=== PATIENT | male | born 1955 | race Caucasian/White ===

== ENCOUNTER 2019-04-05 15:00 | Inpatient (IN) | payer MEDICARE ==
[2019-04-05 15:34] VITALS: BMI 22.4
--- NOTE | 2019-04-05 17:41 | History and Physical Report ---
History of Present Illnes - History of Present Illness Reason for Visit: gait disturbance, wound vac therapy History of Present Illness: 64yo Male who had been diagnosed in 2007 with advanced pancreatic neuroendocrine tumor. On March 14 patient was admitted to the [facility] in clinic for incarcerated ventral hernia patient underwent an exploratory laparotomy with small bowel resection and repair.patient postoperative course has been complicated by urinary retention. Patient had a Rhodes catheter removed several days ago and seemed to be urinating adequately at this time. Patient is also had some continuing leakage of acidic fluid from the incision site. Patient has a wound at the incision site that is hearing by secondary intention. Patient currently has a wound vac to help with wound healing. Patient was transferred to this institution for further physical and occupational therapy because the generalized weakness secondary to his prolonged illness and recovery process. Patient is also continuing to use the wound vac. It is the patient intention to return back home. Patient was diagnosed in 2007 with the pancreatic neuroendocrine tumor. At that time he underwent resection of his left colon, spleen, and pancreas. He has subsequently developed metastatic disease to the liver and underwent a cholecystectomy, partial liver resection, and debulking in 2014. Has required numerous stands for biliary obstruction. Patient also had esophageal varices which is required bending on several different occasions. Patient states that he had been receiving some form of chemotherapy orally that he was started on two weeks prior to his hospitalization. However this is since been discontinued. Patient does have chronic ascites and has had to have frequent abdominal paracentesis. Patient is diabetic related to his pancreatic resection. - Past Medical History Cardiac: Hyperlipidemia Gastrointestinal: Inflam bowel disease, Other (ascites, esophageal varices, ) Heme/Onc: Cancer (maliganant carcinoid syndrome, Primary pancreatic neuroendocrine tumor with metstatic disease) Endocrine: Diabetes (type 2 due to pancreatic resection), Hypothyroidism, Other (hyponatremia) - Past Surgical History Past Surgical History: Cholecystectomy, Other (pacreatic resection, Left colon resection, spleenectomy, partial liver resection, numerous biliary stents for bilary obstruction, banding of esophageal varices, ) - Past Social History Smoke: No Alcohol: None Drugs: None Lives: With Family Domestic Violence: Negative - Health Maintenance Health Maintenance: Pneumococcal Vaccine, Other (meningococcal) Pneumonia Vaccine: Yes Resuscitation Status: full code Review of Systems - Review of Systems Constitutional: negative: Fever, Chills Eyes: negative: pain, vision change, eyelid inflammation ENT: negative: Ear Pain, Ear Discharge, Nose Pain, Nose Discharge, Nose Congestion, Mouth Swelling, Throat Pain, Throat Swelling Respiratory: negative: Cough, Shortness of Breath, Hemoptysis, SOB with Excertion, Pleuritic Pain, Wheezing Cardiovascular: Edema (trace). negative: Chest Pain, Palpitations, Orthopnea, Paroxysmal Noc. Dyspnea, Light Headedness Gastrointestinal: Nausea, Abdominal Pain (post surgical). negative: Vomiting, Diarrhea, Constipation, Melena, Hematochezia Genitourinary: Other (patient had some problems with urination that required rhodes post op but is doing OK now). negative: Dysuria, Frequency, Incontinence, Hematuria Musculoskeletal: negative: Neck Pain, Shoulder Pain, Arm Pain, Back Pain, Hand Pain Skin: negative: Rash, Lesions, Jaundice Neurological: Weakness (generalized). negative: Incoordination, Change in Speech, Confusion, Seizures - Medications/Allergies Allergies/Adverse Reactions: Allergies Allergy/AdvReac Type Severity Reaction Status Date / Time Penicillins Allergy Verified 04/05/19 15:57 Home Medications: Home Medications Acetaminophen [Tylenol] 650 mg PO Q4H PRN 04/05/19 Ascorbic Acid [Vitamin C with Maureen Hips] 500 mg PO TID 04/05/19 Carvedilol [Coreg] 3.125 mg PO BID 04/05/19 Cholecalciferol [Vitamin D-3] 400 intlu PO DAILY 04/05/19 Folic Acid [Folvite] 1 mg PO DAILY 04/05/19 Furosemide [Lasix] 40 mg PO DAILY 04/05/19 Insulin Glargine,Hum.rec.anlog [Lantus] 10 units SQ BID 04/05/19 Insulin Lispro [Humalog Kwikpen U-200] See Protocol 04/05/19 Lanreotide Acetate [Somatuline Depot] 120 mg SQ MONTH 04/05/19 Levothyroxine Sodium [Synthroid] 50 mcg PO DAILY 04/05/19 Ondansetron HCl Rapdis [Zofran ODT] 4 mg PO TID PRN 04/05/19 Oxycodone HCl [Roxicodone] 5 mg PO Q6H PRN 04/05/19 Current Inpatient Medications: Current Inpatient Medications Enoxaparin Sodium (Lovenox) 30 mg SQ DAILY FRANKLIN Stop: 04/20/19 08:59 Exam - Exam Vital Signs: Vital Signs (72 hours) 04/05/19 04/05/19 15:29 15:31 Temperature 97.6 F 97.6 F Pulse Rate [ 84 84 Left Pulse ox] Respiratory 18 18 Rate Blood Pressure 131/78 131/78 [Left Arm] O2 Sat by Pulse 99 99 Oximetry General: Alert, Oriented to Person, Oriented to Place, Oriented to Time, Cooperative, No acute distress HEENT: Atraumatic, PERRLA, EOMI, Mouth Mucous membr. moist/[place], Nose Mucous membr. moist/[place], Dentition Normal, Hearing Grossly Normal Neck: Normal Range of Motion Carotids: slight right bruit Lungs: Clear to auscultation, Normal air movement, Speaks full Sentences Cardiovascular: Regular rate, Normal S1, Normal S2, No murmurs Abdomen: Normal bowel sounds, Soft, No hepatospenomegaly, No masses, Other (wound vac on midline wound superior to umbilicus about 4 cm in diameter, drainage site in RUQ with duraderm ), Distended (mild) Male Genitourinary: Scrotal Edema Integumentary: Normal, [place], Warm, Dry Extremities: No clubbing, No cyanosis, Normal pulses, No tenderness/swelling, Other (mild edema to feet) Neurological: Normal gait, Normal speech, Strength Equal Bilat, Normal tone, Sensation intact, Cranial nerves 3-12 NL, Reflexes 2+ Psych/Mental Status: Mental status NL, Mood NL, Appropriate Affect, Intact Judgment Assessment/Plan - Assessment/Plan (1) S/P repair of ventral hernia Status: Acute Current Visit: Yes Plan: Patient will be continued on the wound VAC. Will continue to monitor patient incision site for healing. (2) Generalized weakness Status: Acute Current Visit: Yes Assessment: Patient will be started on physical and occupational therapy. Will try to optimize patient nutritional status. Patient will be given supplemental nutrition at this time. (3) Diabetes type 2, controlled Status: Chronic Current Visit: Yes Qualifiers: Diabetes mellitus half-way insulin use: with long wall shear operator use Diabetes mellitus complication status: without complication Qualified Code(s): E11.9 - Type 2 diabetes mellitus without complications; Z79.4 - care home (current) use of insulin Plan: Patient will be continued on his home insulin with sliding scale and long-acting insulin. (4) Esophageal varices Status: Chronic Current Visit: Yes Qualifiers: Esophageal varices type: secondary Esophageal varices bleeding: without bleeding Qualified Code(s): I85.10 - Secondary esophageal varices without bleeding Plan: Will continue to monitor. Patient will be started on the proton pump inhibitor. (5) Hypothyroidism Status: Chronic Current Visit: Yes Qualifiers: Hypothyroidism type: unspecified Qualified Code(s): E03.9 - Hypothyroidism, unspecified Plan: Patient will be continued on home thyroid medication. (6) Primary pancreatic neuroendocrine tumor Status: Acute Current Visit: Yes Plan: Patient will have follow up with Dr. Dawn. (7) Metastases to the liver Status: Acute Current Visit: Yes Assessment: Monitored liver function tests. VTE Assessment - RISK FACTOR SCORE VTE RISK FACTOR SCORES: AGE OVER 60 YEARS, ANTICIPATED BED CONFINEMENT OR IMMOBILIZATION > 24 HOURS, MALIGNANCY AND/OR CHEMOTHERAPY - RISK VTE HIGH RISK: SCORE OF 3-4 (RISK PROXIMAL DVT 4-8%) PROPHYLAXIS NEEDED
[2019-04-05] MEDS: ONDANSETRON HCL 4 MG TAB.RAPDIS PO PRN (18:39)
[2019-04-05] MEDS ORDERED: INSULIN GLARGINE,HUM.REC.ANLOG 100 UNIT/ML PEN.INJCTR SQ ONE (20:01)
[2019-04-05] MEDS: CARVEDILOL 6.25 MG TABLET PO SCH (20:43)
[2019-04-05] MEDS: INSULIN ASPART 100 UNIT/ML INSULN.PEN SQ SCH (20:49)
[2019-04-05] MEDS ORDERED: INSULIN GLARGINE HUM REC ANLOG 10 UNIT SQ SCH (21:00)
[2019-04-06] MEDS: PANTOPRAZOLE SODIUM 40 MG TABLET.DR PO SCH (06:10)
[2019-04-06] MEDS: ONDANSETRON HCL 4 MG TAB.RAPDIS PO PRN (06:10)
[2019-04-06] MEDS ORDERED: ASCORBIC ACID (VITAMIN C) 500 MG TABLET PO ONE (08:31)
[2019-04-06] MEDS ORDERED: FUROSEMIDE 40 MG TABLET PO ONE (08:31)
[2019-04-06] MEDS ORDERED: CARVEDILOL 6.25 MG TABLET PO ONE (08:31)
[2019-04-06] MEDS: CARVEDILOL 6.25 MG TABLET PO SCH ×2 (08:41→20:01)
[2019-04-06] MEDS: FUROSEMIDE 40 MG TABLET PO SCH (08:43)
[2019-04-06] MEDS: ASCORBIC ACID (VITAMIN C) 500 MG TABLET PO SCH ×3 (08:43→17:10)
[2019-04-06] MEDS: INSULIN GLARGINE,HUM.REC.ANLOG 100 UNIT/ML PEN.INJCTR SQ SCH ×2 (08:46→20:05)
[2019-04-06] MEDS: INSULIN ASPART 100 UNIT/ML INSULN.PEN SQ SCH ×4 (08:49→20:04)
[2019-04-06] MEDS: FOLIC ACID 1 MG TABLET PO SCH (09:34)
[2019-04-06] MEDS: ENOXAPARIN SODIUM 30 MG/0.3 ML DISP.SYRIN SQ SCH (09:34)
[2019-04-06] MEDS: CHOLECALCIFEROL (VIT-D3) 1,000 UNIT TABLET PO SCH (09:35)
[2019-04-06] MEDS: LEVOTHYROXINE SODIUM 50 MCG TABLET PO SCH (12:22)
[2019-04-06] MEDS: TAMSULOSIN HCL 0.4 MG CAP.ER.24H PO SCH (17:10)
[2019-04-06] MEDS: ACETAMINOPHEN 325 MG TABLET PO PRN (17:17)
[2019-04-06] MEDS: traMADol HCL 50 MG TABLET PO PRN (20:02)
[2019-04-07] MEDS: ACETAMINOPHEN 325 MG TABLET PO PRN (04:01)
[2019-04-07] MEDS: LEVOTHYROXINE SODIUM 50 MCG TABLET PO SCH (06:00)
[2019-04-07] MEDS: PANTOPRAZOLE SODIUM 40 MG TABLET.DR PO SCH (06:00)
[2019-04-07] MEDS: INSULIN ASPART 100 UNIT/ML INSULN.PEN SQ SCH ×4 (07:21→20:07)
[2019-04-07] MEDS: INSULIN GLARGINE,HUM.REC.ANLOG 100 UNIT/ML PEN.INJCTR SQ SCH ×2 (08:06→20:08)
[2019-04-07] MEDS: CHOLECALCIFEROL (VIT-D3) 1,000 UNIT TABLET PO SCH (08:11)
[2019-04-07] MEDS: FOLIC ACID 1 MG TABLET PO SCH (08:11)
[2019-04-07] MEDS: ENOXAPARIN SODIUM 30 MG/0.3 ML DISP.SYRIN SQ SCH (08:12)
[2019-04-07] MEDS: FUROSEMIDE 40 MG TABLET PO SCH (08:12)
[2019-04-07] MEDS: ASCORBIC ACID (VITAMIN C) 500 MG TABLET PO SCH ×3 (08:12→18:13)
[2019-04-07] MEDS: CARVEDILOL 6.25 MG TABLET PO SCH ×2 (08:12→20:06)
[2019-04-07] MEDS: traMADol HCL 50 MG TABLET PO PRN ×3 (08:19→20:06)
[2019-04-07] MEDS: ONDANSETRON HCL 4 MG TAB.RAPDIS PO PRN ×2 (08:20→18:20)
[2019-04-07] MEDS ORDERED: CALCIUM CARB 500 MG TAB.CHEW PO PRN (14:02)
[2019-04-07] MEDS: TAMSULOSIN HCL 0.4 MG CAP.ER.24H PO SCH (18:13)
[2019-04-08] MEDS: PANTOPRAZOLE SODIUM 40 MG TABLET.DR PO SCH (05:46)
[2019-04-08] MEDS: LEVOTHYROXINE SODIUM 50 MCG TABLET PO SCH (05:46)
[2019-04-08] MEDS: ACETAMINOPHEN 325 MG TABLET PO PRN (05:46)
[2019-04-08] MEDS: INSULIN ASPART 100 UNIT/ML INSULN.PEN SQ SCH ×4 (07:30→23:32)
[2019-04-08] MEDS: ONDANSETRON HCL 4 MG TAB.RAPDIS PO PRN (08:17)
[2019-04-08] MEDS: CARVEDILOL 6.25 MG TABLET PO SCH ×2 (08:51→23:29)
[2019-04-08] MEDS: FUROSEMIDE 40 MG TABLET PO SCH (08:51)
[2019-04-08] MEDS: FOLIC ACID 1 MG TABLET PO SCH (08:51)
[2019-04-08] MEDS: ASCORBIC ACID (VITAMIN C) 500 MG TABLET PO SCH ×3 (08:52→17:56)
[2019-04-08] MEDS: CHOLECALCIFEROL (VIT-D3) 1,000 UNIT TABLET PO SCH (08:52)
[2019-04-08] MEDS: ENOXAPARIN SODIUM 30 MG/0.3 ML DISP.SYRIN SQ SCH (08:52)
[2019-04-08] MEDS: INSULIN GLARGINE,HUM.REC.ANLOG 100 UNIT/ML PEN.INJCTR SQ SCH ×2 (08:52→23:34)
[2019-04-08] MEDS: traMADol HCL 50 MG TABLET PO PRN ×2 (11:18→17:57)
[2019-04-08] MEDS: TAMSULOSIN HCL 0.4 MG CAP.ER.24H PO SCH (17:56)
[2019-04-09] MEDS: PANTOPRAZOLE SODIUM 40 MG TABLET.DR PO SCH (06:06)
[2019-04-09] MEDS: traMADol HCL 50 MG TABLET PO PRN ×3 (06:06→21:05)
[2019-04-09] MEDS: LEVOTHYROXINE SODIUM 50 MCG TABLET PO SCH (06:06)
[2019-04-09] MEDS: INSULIN ASPART 100 UNIT/ML INSULN.PEN SQ SCH ×4 (07:52→21:12)
[2019-04-09] MEDS: INSULIN GLARGINE,HUM.REC.ANLOG 100 UNIT/ML PEN.INJCTR SQ SCH ×2 (07:55→21:06)
[2019-04-09] MEDS: CHOLECALCIFEROL (VIT-D3) 1,000 UNIT TABLET PO SCH (08:13)
[2019-04-09] MEDS: ASCORBIC ACID (VITAMIN C) 500 MG TABLET PO SCH ×3 (08:14→17:46)
[2019-04-09] MEDS: FUROSEMIDE 40 MG TABLET PO SCH (08:14)
[2019-04-09] MEDS: CARVEDILOL 6.25 MG TABLET PO SCH ×2 (08:14→21:05)
[2019-04-09] MEDS: FOLIC ACID 1 MG TABLET PO SCH (08:15)
[2019-04-09] MEDS: ENOXAPARIN SODIUM 30 MG/0.3 ML DISP.SYRIN SQ SCH (08:15)
[2019-04-09] MEDS: ACETAMINOPHEN 325 MG TABLET PO PRN (08:19)
[2019-04-09] MEDS: TAMSULOSIN HCL 0.4 MG CAP.ER.24H PO SCH (17:46)
[2019-04-10] MEDS: PANTOPRAZOLE SODIUM 40 MG TABLET.DR PO SCH (06:38)
[2019-04-10] MEDS: traMADol HCL 50 MG TABLET PO PRN ×2 (06:38→21:57)
[2019-04-10] MEDS: LEVOTHYROXINE SODIUM 50 MCG TABLET PO SCH (06:38)
[2019-04-10] MEDS: INSULIN ASPART 100 UNIT/ML INSULN.PEN SQ SCH ×4 (07:41→21:59)
[2019-04-10] MEDS: INSULIN GLARGINE,HUM.REC.ANLOG 100 UNIT/ML PEN.INJCTR SQ SCH ×2 (07:47→22:01)
[2019-04-10] MEDS: ONDANSETRON HCL 4 MG TAB.RAPDIS PO PRN (07:49)
[2019-04-10 07:54] LABS: APPEARANCE,URINE CLEAR (CLEAR); COLOR,URINE YELLOW (YELLOW); OCCULT BLOOD,URINE TRACE-INTACT (NEGATIVE); PH URINE 5.5 (5.0 - 8.0); UROBILINOGEN URINE 0.2 Eu (0.2-1.0)
[2019-04-10] MEDS: FUROSEMIDE 40 MG TABLET PO SCH (09:56)
[2019-04-10] MEDS: ASCORBIC ACID (VITAMIN C) 500 MG TABLET PO SCH ×3 (09:56→17:35)
[2019-04-10] MEDS: CARVEDILOL 6.25 MG TABLET PO SCH ×2 (09:56→21:57)
[2019-04-10] MEDS: CHOLECALCIFEROL (VIT-D3) 1,000 UNIT TABLET PO SCH (09:57)
[2019-04-10] MEDS: ENOXAPARIN SODIUM 30 MG/0.3 ML DISP.SYRIN SQ SCH (09:57)
[2019-04-10] MEDS: FOLIC ACID 1 MG TABLET PO SCH (09:57)
[2019-04-10] MEDS: ACETAMINOPHEN 325 MG TABLET PO PRN (10:07)
[2019-04-10] MEDS: TAMSULOSIN HCL 0.4 MG CAP.ER.24H PO SCH (17:35)
[2019-04-11] MEDS: PANTOPRAZOLE SODIUM 40 MG TABLET.DR PO SCH (06:08)
[2019-04-11] MEDS: LEVOTHYROXINE SODIUM 50 MCG TABLET PO SCH (06:08)
[2019-04-11] MEDS: traMADol HCL 50 MG TABLET PO PRN ×2 (06:08→14:38)
[2019-04-11] MEDS: ONDANSETRON HCL 4 MG TAB.RAPDIS PO PRN (06:08)
[2019-04-11 07:12] LABS: eGFR (Non-African) > 60
[2019-04-11 07:33] LABS: BASOPHILS % 0.4 % (0.0-1.5); NEUTROPHILS # 4.6 # k/uL (1.4-7.7)
[2019-04-11] MEDS: INSULIN ASPART 100 UNIT/ML INSULN.PEN SQ SCH ×4 (07:43→21:06)
[2019-04-11] MEDS: INSULIN GLARGINE,HUM.REC.ANLOG 100 UNIT/ML PEN.INJCTR SQ SCH ×2 (07:44→21:07)
[2019-04-11] MEDS: FOLIC ACID 1 MG TABLET PO SCH (08:19)
[2019-04-11] MEDS: FUROSEMIDE 40 MG TABLET PO SCH (08:20)
[2019-04-11] MEDS: CARVEDILOL 6.25 MG TABLET PO SCH ×2 (08:20→21:05)
[2019-04-11] MEDS: CHOLECALCIFEROL (VIT-D3) 1,000 UNIT TABLET PO SCH (08:21)
[2019-04-11] MEDS: ASCORBIC ACID (VITAMIN C) 500 MG TABLET PO SCH ×3 (08:21→17:15)
[2019-04-11] MEDS: ENOXAPARIN SODIUM 30 MG/0.3 ML DISP.SYRIN SQ SCH (08:22)
[2019-04-11] MEDS: TAMSULOSIN HCL 0.4 MG CAP.ER.24H PO SCH (17:15)
[2019-04-12] MEDS: PANTOPRAZOLE SODIUM 40 MG TABLET.DR PO SCH (06:04)
[2019-04-12] MEDS: LEVOTHYROXINE SODIUM 50 MCG TABLET PO SCH (06:04)
[2019-04-12] MEDS: INSULIN ASPART 100 UNIT/ML INSULN.PEN SQ SCH ×4 (07:54→22:04)
[2019-04-12] MEDS: FOLIC ACID 1 MG TABLET PO SCH (08:22)
[2019-04-12] MEDS: ASCORBIC ACID (VITAMIN C) 500 MG TABLET PO SCH ×3 (08:22→18:10)
[2019-04-12] MEDS: CHOLECALCIFEROL (VIT-D3) 1,000 UNIT TABLET PO SCH (08:22)
[2019-04-12] MEDS: FUROSEMIDE 40 MG TABLET PO SCH (08:22)
[2019-04-12] MEDS: ENOXAPARIN SODIUM 30 MG/0.3 ML DISP.SYRIN SQ SCH (08:23)
[2019-04-12] MEDS: CARVEDILOL 6.25 MG TABLET PO SCH ×2 (08:23→21:45)
[2019-04-12] MEDS: INSULIN GLARGINE,HUM.REC.ANLOG 100 UNIT/ML PEN.INJCTR SQ SCH ×2 (09:59→21:47)
[2019-04-12] MEDS: traMADol HCL 50 MG TABLET PO PRN ×2 (11:33→21:44)
[2019-04-12] MEDS: TAMSULOSIN HCL 0.4 MG CAP.ER.24H PO SCH (18:10)
[2019-04-13] MEDS: ACETAMINOPHEN 325 MG TABLET PO PRN ×2 (02:52→20:42)
[2019-04-13] MEDS: ONDANSETRON HCL 4 MG TAB.RAPDIS PO PRN (02:52)
[2019-04-13] MEDS: LEVOTHYROXINE SODIUM 50 MCG TABLET PO SCH (06:34)
[2019-04-13] MEDS: traMADol HCL 50 MG TABLET PO PRN ×3 (06:34→17:35)
[2019-04-13] MEDS: PANTOPRAZOLE SODIUM 40 MG TABLET.DR PO SCH (06:34)
[2019-04-13] MEDS: INSULIN ASPART 100 UNIT/ML INSULN.PEN SQ SCH ×4 (08:51→20:39)
[2019-04-13] MEDS: INSULIN GLARGINE,HUM.REC.ANLOG 100 UNIT/ML PEN.INJCTR SQ SCH ×2 (08:52→21:46)
[2019-04-13] MEDS: CHOLECALCIFEROL (VIT-D3) 1,000 UNIT TABLET PO SCH (08:53)
[2019-04-13] MEDS: ASCORBIC ACID (VITAMIN C) 500 MG TABLET PO SCH ×3 (08:54→17:35)
[2019-04-13] MEDS: CARVEDILOL 6.25 MG TABLET PO SCH ×2 (08:54→20:42)
[2019-04-13] MEDS: FOLIC ACID 1 MG TABLET PO SCH (08:54)
[2019-04-13] MEDS: FUROSEMIDE 40 MG TABLET PO SCH (08:54)
[2019-04-13] MEDS: ENOXAPARIN SODIUM 30 MG/0.3 ML DISP.SYRIN SQ SCH (08:56)
[2019-04-13] MEDS: TAMSULOSIN HCL 0.4 MG CAP.ER.24H PO SCH (17:35)
[2019-04-14] MEDS: traMADol HCL 50 MG TABLET PO PRN ×2 (04:34→12:30)
[2019-04-14] MEDS: PANTOPRAZOLE SODIUM 40 MG TABLET.DR PO SCH (06:12)
[2019-04-14] MEDS: LEVOTHYROXINE SODIUM 50 MCG TABLET PO SCH (06:12)
[2019-04-14] MEDS: INSULIN ASPART 100 UNIT/ML INSULN.PEN SQ SCH ×2 (07:16→12:32)
[2019-04-14 07:22] LABS: eGFR (Non-African) > 60
[2019-04-14] MEDS: ASCORBIC ACID (VITAMIN C) 500 MG TABLET PO SCH (08:43)
[2019-04-14] MEDS: ACETAMINOPHEN 325 MG TABLET PO PRN (08:43)
[2019-04-14] MEDS: ENOXAPARIN SODIUM 30 MG/0.3 ML DISP.SYRIN SQ SCH (08:43)
[2019-04-14] MEDS: FUROSEMIDE 40 MG TABLET PO SCH (08:43)
[2019-04-14] MEDS: CHOLECALCIFEROL (VIT-D3) 1,000 UNIT TABLET PO SCH (08:43)
[2019-04-14] MEDS: FOLIC ACID 1 MG TABLET PO SCH (08:43)
[2019-04-14] MEDS: INSULIN GLARGINE,HUM.REC.ANLOG 100 UNIT/ML PEN.INJCTR SQ SCH (08:44)
[2019-04-14] MEDS: CARVEDILOL 6.25 MG TABLET PO SCH (08:44)
--- NOTE | 2019-04-14 09:18 | Discharge Summary ---
Discharge Summary - Discharge [facility] Admission Date: 04/14/19 (SNF) Discharge Date: 04/05/19 ([facility] with home health) Discharge To: Home Health History of Present Illness: 64yo Male who had been diagnosed in 2007 with advanced pancreatic neuroendocrine tumor. On March 14 patient was admitted to the [facility] in clinic for incarcerated ventral hernia patient underwent an exploratory laparotomy with small bowel resection and repair.patient postoperative course has been complicated by urinary retention. Patient had a Gran[place] catheter removed several days ago and seemed to be urinating adequately at this time. Patient is also had some continuing leakage of acidic fluid from the incision site. Patient has a wound at the incision site that is hearing by secondary intention. Patient currently has a wound vac to help with wound healing. Patient was transferred to this institution for further physical and occupational therapy because the generalized weakness secondary to his prolonged illness and recovery process. Patient is also continuing to use the wound vac. It is the patient intention to return back home. Patient was diagnosed in 2007 with the pancreatic neuroendocrine tumor. At that time he underwent resection of his left colon, spleen, and pancreas. He has subsequently developed metastatic disease to the liver and underwent a cholecystectomy, partial liver resection, and debulking in 2014. Has required nu merous stands for biliary obstruction. Patient also had esophageal varices which is required bending on several different occasions. Patient states that he had been receiving some form of chemotherapy orally that he was started on two weeks prior to his hospitalization. However this is since been discontinued. Patient does have chronic ascites and has had to have frequent abdominal paracentesis. P rolandoient is diabetic related to his pancreatic resection. Condition at Discharge: Stable Home Medications: Ambulatory Orders Medication Instructions Recorded Acetaminophen [Tylenol] 650 mg PO Q4H PRN 04/05/19 Ascorbic Acid [Vitamin C with Maureen 500 mg PO TID 04/05/19 Hips] Carvedilol [Coreg] 3.125 mg PO BID 04/05/19 Cholecalciferol [Vitamin D-3] 400 intlu PO DAILY 04/05/19 Folic Acid [Folvite] 1 mg PO DAILY 04/05/19 Furosemide [Lasix] 40 mg PO DAILY 04/05/19 Insulin Glargine,Hum.rec.anlog 10 units SQ BID 04/05/19 [Lantus] Lanreotide Acetate [Somatuline 120 mg SQ MONTH 04/05/19 Depot] Levothyroxine Sodium [Synthroid] 50 mcg PO DAILY 04/05/19 Insulin Lispro 3Ml [Humalog 3 ml] 100 unit SQ TID #15 ml 04/13/19 Ondansetron HCl Rapdis [Zofran ODT] 4 mg PO TID PRN #20 tab.rapdis 04/13/19 Pantoprazole Sodium [Protonix] 40 mg PO 0700 tablet. 04/13/19 Spironolactone 25 mg PO DAILY #30 tablet 04/13/19 Tamsulosin HCl [Flomax] 0.4 mg PO [id number] #30 cap.er.24h 04/13/19 traMADol HCL [Ultram] 50 mg PO Q6H PRN tablet 04/13/19 Consultations this Visit: None Procedures this Visit: None Allergies/Adverse Reactions: Allergies Allergy/AdvReac Type Severity Reaction Status Date / Time Penicillins Allergy Verified 04/05/19 15:57 Patient Problems: Current Active Problems Problem Status Onset Generalized weakness Acute Metastases to the liver Acute Primary pancreatic neuroendocrine tumor Acute S/P repair of ventral hernia Acute Diabetes type 2, controlled Chronic Esophageal varices Chronic Hypothyroidism Chronic Discharge Summary: Patient was started on PT and OT. He remained weak and did have some difficulties participating with therapies at times. Patient continued to have a poor appetite. He has had some issues with nausea but no vomiting noted. He has also had some loose stools. He and his states that these are symptoms that he gets when it is time for his lanreotide injection. This was due last week. Patient continued to use wound vac for his anterior abd wall wound. Follow-up with surgical clinic did not show a lot of healing in the wound. Because of patient slow progress with PT and OT and the fact that he needs his lanreotide injection it was felt that he might do better at home. Patient was advised that it was important for him to to have adequate nutrition in order to help heal his wound. Patient states he will feel better and be able to eat better once he gets his injection. Patient was discharged home with home health services to monitor nutrition, monitor diabetes, continue with therapy and monitor wound healing. - Final Diagnosis (1) S/P repair of ventral hernia Problems: According to surgery clinic note wound has not made much progress. Plan is to continue wound vac and try to optimize nutrition. (2) Generalized weakness Problems: Continue with PT and OT through home health (3) Diabetes type 2, controlled Problems: has been stable. Patient has not needed much of his sliding scale insulin. (4) Esophageal varices Problems: stable (5) Hypothyroidism Problems: stable on home med (6) Primary pancreatic neuroendocrine tumor Problems: Will try to get patient over to [facility] for chemo injection.
--- NOTE | 2019-04-14 10:38 | Inpatient Progress Note ---
Subjective - Required Recertification Statement I anticipate X number of days because-include discharge plan: 10 day - Review of Systems Events since last encounter: Patient has been having some difficluties with participating in PT and OT at times. Has been having some nausea and loose stools. Spouse states that he getws this when he is past in chem therapy injection. It was due last week. Patient's appetite is diminsihed. Has not had any vomiting. He is trying to take in some Ensure. States pain is doing well. Objective - Exam Vitals and I&O: Vital Signs Temp 97.7 F 04/14/19 08:38 Pulse 83 04/14/19 08:38 Resp 18 04/14/19 08:38 BP 123/80 04/14/19 08:38 Pulse Ox 95 04/14/19 08:38 Intake & Output 04/13/19 04/13/19 04/14/19 11:59 23:59 11:59 Intake Total 120 120 Balance 120 120 Weight 76.022 kg Intake: Oral 120 120 Other: Voiding Method Incontinent Urinal Incontinent # Voids 1 # Bowel Movements 1 3 General: Alert, Oriented to Person, Oriented to Place, Oriented to Time, Mild distress Neck: Supple Lungs: Clear to auscultation, Normal air movement, Speaks full Sentences. No: Wheezes, Rales, Rhonchi Cardiovascular: Regular rate, Normal S1, Normal S2, No murmurs Abdomen: Normal bowel sounds, Soft, No tenderness, Other (wound vac in place) Extremities: No clubbing, No cyanosis, No edema Skin: Normal, [place], Warm, Dry Neurological: Normal speech, Strength Equal Bilat, Normal tone Psych/Mental Status: Mental status NL. No: Mood NL (seems depressed some but he states he is OK.) - Results Results: Laboratory Results WBC 6.10 K/ul (4.00-12.00) 04/11/19 05:45 RBC 3.16 M/ul (3.90-5.20) L 04/11/19 05:45 Hgb 9.8 g/dL (12.0-18.0) L 04/11/19 05:45 Hct 29.2 % (37.0-53.0) L 04/11/19 05:45 MCV 92.0 fl (80.0-100.0) 04/11/19 05:45 MCH 31.2 pg (28.0-34.0) 04/11/19 05:45 MCHC 33.7 g/dL (30.0-36.0) 04/11/19 05:45 RDW 11.8 % (11.3-14.3) 04/11/19 05:45 Plt Count 334 K/mm3 (130-400) 04/11/19 05:45 Neut % (Auto) 75.7 % (39.0-79.0) 04/11/19 05:45 Lymph % (Auto) 6.7 % (16.0-50.0) L 04/11/19 05:45 [place] % (Auto) 15.3 % (0.0-11.0) H 04/11/19 05:45 Eos % (Auto) 1.9 % (0.0-6.8) 04/11/19 05:45 Baso % (Auto) 0.4 % (0.0-1.5) 04/11/19 05:45 Neut # (Auto) 4.6 # k/uL (1.4-7.7) 04/11/19 05:45 Lymph # (Auto) 0.4 # k/uL (0.6-4.0) L 04/11/19 05:45 [place] # (Auto) 0.9 # k/uL (0.0-0.9) 04/11/19 05:45 Eos # (Auto) 0.1 # k/uL (0.0-0.6) 04/11/19 05:45 Baso # (Auto) 0.0 # k/uL (0.0-0.5) 04/11/19 05:45 Sodium 131 mmol/L (137-145) L 04/14/19 06:36 Potassium 3.7 mmol/L (3.5-5.1) 04/14/19 06:36 Chloride 96 mmol/L (98-107) L 04/14/19 06:36 Carbon Dioxide 30 mmol/L (22-30) 04/14/19 06:36 Anion Gap 8.7 04/14/19 06:36 BUN 16 mg/dL (9-20) 04/14/19 06:36 Creatinine 0.70 mg/dL (0.66-1.25) 04/14/19 06:36 Estimated Creat Clear 108 04/14/19 06:36 Est GFR ( Amer) > 60 (60-) 04/14/19 06:36 Est GFR (Non-Af Amer) > 60 (60-) 04/14/19 06:36 Glucose 127 mg/dL (74-106) H 04/14/19 06:36 Calcium 8.4 mg/dL (8.4-10.2) 04/14/19 06:36 Total Bilirubin 0.8 mg/dL (0.2-1.3) 04/14/19 06:36 AST 40 U/L (15-46) 04/14/19 06:36 ALT 15 U/L (0-50) 04/14/19 06:36 Alkaline Phosphatase 170 U/L (38-126) H 04/14/19 06:36 Total Protein 5.8 g/dL (6.3-8.2) L 04/14/19 06:36 Albumin 2.2 g/dL (3.5-5.0) L 04/14/19 06:36 Urine Color Yellow (YELLOW) 04/09/19 05:45 Urine Appearance Clear (CLEAR) 04/09/19 05:45 Urine pH 5.5 (5.0 - 8.0) 04/09/19 05:45 Ur Specific [place] 1.025 (1.010-1.030) 04/09/19 05:45 Urine Protein Negative mg/dL (NEGATIVE) 04/09/19 05:45 Urine Ketones 1+ mg/dL (NEGATIVE) H 04/09/19 05:45 Urine Occult Blood Trace-intact (NEGATIVE) H 04/09/19 05:45 Urine Nitrite Negative (NEGATIVE) 04/09/19 05:45 Urine Bilirubin Negative (NEGATIVE) 04/09/19 05:45 Urine Urobilinogen 0.2 Eu (0.2-1.0) 04/09/19 05:45 Ur Leukocyte Esterase Trace (NEGATIVE) H 04/09/19 05:45 Urine RBC 0-2 (0-2 HPF) 04/09/19 05:45 Urine WBC 10-25 (0-5 HPF) H 04/09/19 05:45 Ur Squamous Epith Cells Few (NEG-FEW) 04/09/19 05:45 Calcium Oxalate Crystal Few (NEGATIVE) H 04/09/19 05:45 Urine Bacteria Many (NEGATIVE) H 04/09/19 05:45 Urine Glucose Negative mg/dL (NEGATIVE) 04/09/19 05:45 Assessment/Plan - Assessment/Plan (1) S/P repair of ventral hernia Status: Acute Current Visit: Yes Assessment: continue with wound vac (2) Generalized weakness Status: Acute Current Visit: Yes Assessment: encourage po intake (3) Diabetes type 2, controlled Status: Chronic Current Visit: Yes Qualifiers: Diabetes mellitus meterman insulin use: with meterman use Diabetes mellitus complication status: without complication Qualified Code(s): E11.9 - Type 2 diabetes mellitus without complications; Z79.4 - group home (current) use of insulin Assessment: stable (4) Hypothyroidism Status: Chronic Current Visit: Yes Qualifiers: Hypothyroidism type: unspecified Qualified Code(s): E03.9 - Hypothyroidism, unspecified (5) Primary pancreatic neuroendocrine tumor Status: Acute Current Visit: Yes
[2019-04-14 13:27] VITALS: BP 101/67
== END 2019-04-14 13:15 | disposition home or self-care (01) | DRG 948 ==
LOC: SOUTH 15:00
PROVIDERS: ADMIT Family Medicine; ATTEND Family Medicine
DX: R53.1 Weakness (principal); C7B.8 Other secondary neuroendocrine tumors; I85.00 Esophageal varices without bleeding; R18.8 Other ascites; C7A.8 Other malignant neuroendocrine tumors; E78.5 Hyperlipidemia, unspecified; E03.9 Hypothyroidism, unspecified; E11.9 Type 2 diabetes mellitus without complications; R26.89 Other abnormalities of gait and mobility; Z90.49 Acquired absence of other specified parts of digestive tract; Z88.0 Allergy status to penicillin; Z90.410 Acquired total absence of pancreas; Z90.81 Acquired absence of spleen; Z79.899 Other long term (current) drug therapy; Z79.890 Hormone replacement therapy; Z79.4 Long term (current) use of insulin; Z98.890 Other specified postprocedural states
CPT/HCPCS: 36415; 80053; 81002; 85025; 97112; 97116; 97161; 97165; 97530; 97535; A9270; J1650; J1815; 99221; 99231; 99238